=== PATIENT | male | born 1990 | race African-American/Black ===

== ENCOUNTER 2024-09-21 22:45 | Emergency (ER) | payer OTHER ==
[~2024-09-21] VITALS: Ht 185.4 cm; Wt 90.7 kg
[2024-09-21 23:01] VITALS: BP 115/92; TEMP 97.9; O2SAT 99
[2024-09-21] MEDS ORDERED: ONDA4TAB11 PO (23:54)
[2024-09-21] MEDS ORDERED: DICY20TA11 PO (23:54)
[2024-09-21] MEDS ORDERED: CIPR500T5 PO (23:54)
[2024-09-21] MEDS ORDERED: DICYCLOMINE HCL 10 MG CAPSULE PO ONE (23:55)
[2024-09-21] MEDS: DICYCLOMINE HCL 10 MG CAPSULE PO ONE (23:56)
== END 2024-09-22 00:19 | disposition home or self-care (01) ==
LOC: ER 22:51
DX: A08.8 Other specified intestinal infections (principal); R19.7 Diarrhea, unspecified; R11.0 Nausea; R10.9 Unspecified abdominal pain